=== PATIENT | female | born 1935 | race Two or more races ===

== ENCOUNTER 2024-06-24 15:50 | Emergency (ER) | payer OTHER ==
[~2024-06-24] VITALS: Ht 157.5 cm; Wt 67.1 kg
[~2024-06-24 15:50] MED LIST: ASA81 MG PO; ATENOLOL50 MG PO; HYZAAR 100/25 T1 TAB PO
[2024-06-24] MEDS ORDERED: TRAZODONE HCL50 MG PO (16:24)
[2024-06-24 16:25] VITALS: BP 160/70; O2SAT 95
[2024-06-24] MEDS ORDERED: LEVO-T50 MCG PO (16:25)
[2024-06-24 18:26] LABS: HEMATOCRIT 41.7 % (36.0-45.00); HEMOGLOBIN 13.7 g/dL (12.0-15.00); MEAN CORPUSCULAR HEMOGLOBIN 30.8 pg (27.00-32.0); MEAN CORPUSCULAR HGB CONC 32.8 g/dl (32.0-36.0); PLATELET COUNT 333 K/uL (150-450); RED BLOOD COUNT 4.44 M/uL (4.00-6.00); RED CELL DISTRIBUTION WIDTH 14.4 % (11.5-14.5)
[2024-06-24 18:32] LABS: URINE APPEARANCE Clear; URINE BILIRRUBIN Negative (NEGATIVE); URINE BLOOD Negative; URINE COLOR Yellow; URINE GLUCOSE Negative (NEGATIVE); URINE KETONE Trace (NEGATIVE); URINE LEUKOCYTE Trace; URINE NITRATE Negative; URINE PROTEIN Trace (NEGATIVE)
[2024-06-24 18:36] LABS: URINE BACTERIA 151.6 uL (0.0-1933); URINE EPITHELIAL CELLS 6.1 uL (0.0-38.8); URINE RBC 23.1 uL (0.0-20.8); URINE WBC 7.1 uL (0.0-23.2)
[2024-06-24 18:46] LABS: CALCIUM 9.9 mg/dL (8.5-10.1); CREATININE SERUM 0.93 mg/dL (0.55-1.02); GFR 57.16; POTASSIUM 3.04 mEq/L (3.5-5.1)
== END 2024-06-24 20:29 | disposition home or self-care (01) ==
LOC: ER 15:52
PROVIDERS: General Practice
DX: R53.81 Other malaise (principal); M25.569 Pain in unspecified knee